=== PATIENT | male | born 1965 | race Caucasian/White ===

== ENCOUNTER 2016-12-28 14:01 | Emergency (ER) | payer OTHER ==
[~2016-12-28] VITALS: Ht 182.9 cm; Wt 84.1 kg
[~2016-12-28 14:01] MED LIST: AMT50T PO; ASPI500T8 PO; EPIN0.3P2 IJ; ERGO500050 PO; INSU100I13 SUBQ; INSU100V28 SUBQ; LAMO100T PO; LORA-305 PO; METF500T4 PO; METH0.2T42 PO; METO50TA3 PO; NORT25CA PO; PHEN32.417 PO; PRAM0.122 PO; SILD20TA14 PO; TIZA4CAP PO; TIZA4TAB4 PO; TOPI100T32 PO
[2016-12-28] MEDS ORDERED: fentaNYL-PF 50 mCg/mL 2 mL Inj ONE (14:02)
[2016-12-28] MEDS ORDERED: Propofol 10,000 mCg/mL 20 mL Inj ONE (14:02)
[2016-12-28 14:09] VITALS: BP 156/91; PULSE 113; RESP 10; O2SAT 96
[2016-12-28 16:47] LABS: BASOPHILS % (AUTO) 0.2 % (0-3); EOSINOPHILS % (AUTO) 0.8 % (0-5); MONOCYTES % (AUTO) 4.4 % (4-12); Mean Corpuscular Hemoglobin 28.2 pg (27.0-35.0); Mean Corpuscular Volume 82.2 fL (81-100); NEUTROPHILS % (AUTO) 73.6 % (40-74); Platelet Count 234 bil/L (150-400)
[2016-12-28] MEDS ORDERED: Ondansetron 2 mg/mL 2 mL Inj ONE (17:00)
[2016-12-28] MEDS ORDERED: oxyCODONE ER 10 mg ER12 Tablet PO ONE (17:46)
[2016-12-28] MEDS ORDERED: LORazepam 2 mg Tablet ONE (17:47)
--- NOTE | 2016-12-28 21:33 | PCM.HPANE ---
Patient Data Date of Service: December 28, 2016 Surgeon Admitting Provider: Attending Provider: Primary Care Physician:Ori Marshall MD Other Provider: Reason for Visit Passed Out Ht/WT & BMI Height (Feet): 6 Height (Inches): 0 Weight (Kilograms): 84.09 Body Mass Index Allergies Coded Allergies: prochlorperazine (Verified Allergy, Severe, anaphylaxis, 05/09/16) venom-honey bee (Verified Allergy, Severe, anaohykaxis, 05/09/16) adhesive tape (Verified Allergy, Intermediate, rash, 05/09/16) atorvastatin (Verified Allergy, Intermediate, hives, 05/09/16) miconazole (Verified Allergy, Intermediate, hives, 05/09/16) naproxen (Verified Allergy, Intermediate, hives, 05/09/16) sumatriptan (Verified Allergy, Intermediate, hives, 05/09/16) gabapentin (Verified Allergy, Mild, hives, 05/09/16) mirtazapine (Verified Allergy, Mild, hives, 05/09/16) oxycodone (Verified Allergy, Unknown, Anaphylaxis, 12/28/16) acetaminophen (Verified Adverse Reaction, Intermediate, nausea, 05/09/16) ibuprofen (Verified Adverse Reaction, Intermediate, liver toxicity, ) pregabalin (Verified Adverse Reaction, Mild, swelling, 05/09/16) Past Anesthesia History Anesthesia History: Denies:: Anesthesia Reactions Diabetes History Hx Diabetes?: Yes (TAKE INSULIN AND METFORMIN ) MRSA MRSA: No Medications Hypertension Medication: Yes Home Meds Incl Beta Agnieszka: Yes Date Beta Agnieszka Taken: December 28, 2016 Time Beta Agnieszka Taken: 08:00 Active Scripts Pramipexole Dihydrochloride (Mirapex)0.125 Mg Tablet0.125 Mg PO TID #21 TABLET Prov:Carlos Uribe DO 05/09/16 Metoprolol Tartrate 50 Mg Nfedlz71 Mg PO BID #60 TABLET Ref 0 Prov:Carlos Uribe DO 05/09/16 Metformin 500 Mg Emoizx351 Mg PO BID #60 TABLET Ref 0 Prov:Carlos Uribe DO 05/09/16 Insulin Glargine (Lantus U100 Solostar Insulin Pen)100 Unit/1 Ml Insuln.pen40 Unit SUBQ DAILY #1 PENINJ Ref 0 Prov:Carlos Uribe DO 05/09/16 Phenobarbital 32.4 Mg Vhyfgi75.4 Mg PO BID #60 TABLET Prov:Carlos Uribe DO 05/09/16 Lamotrigine (Lamictal)100 Mg Hozjxs252 Mg PO DAILY #30 TABLET Ref 0 Prov:Carlos Uribe DO 05/09/16 Reported Medications Tizanidine (Zanaflex)4 Mg Capsule8 Mg PO TID 05/09/16 Ergocalciferol (Vitamin D2) (Drisdol)50,000 Unit Fbzefyb31,000 Unit PO Q7D 05/09/16 Topiramate (Topamax)100 Mg Aykgau033 Mg PO BID Ref 0 05/09/16 Tizanidine 4 Mg Tablet8 Mg PO TID 05/09/16 Sildenafil Citrate (Sildenafil)20 Mg Ojvlfa20-257 Mg PO q 1-2hrs prior IC 05/09/16 Phenobarbital 32.4 Mg Dyjset30.4 Mg PO BID 30 Days 05/09/16 Nortriptyline 25 Mg Zlzcdbe208 Mg PO HS 05/09/16 Pramipexole Dihydrochloride (Mirapex)0.125 Mg Tablet0.125 Mg PO every 3rd day 05/09/16 Metoprolol Tartrate 50 Mg Stbdfo97 Mg PO TIDWM 30 Days Ref 0 05/09/16 Methylergonovine Maleate 0.2 Mg Tablet0.2 Mg PO BID 05/09/16 Metformin 500 Mg Zruzhg834 Mg PO BID Ref 0 05/09/16 Lamotrigine (Lamictal)100 Mg Tzozcf276 Mg PO DAILY #30 TABLET Ref 0 05/09/16 Insulin Regular, Human (HUMulin-R U100 Insulin Vial)100 Unit/1 Ml Vial12 Unit SUBQ BID #1 VIAL Ref 0 05/09/16 Epinephrine (Epipen 2-Adithya)0.3 Mg/0.3 Ml Auto.injct0.3 Mg IJ 05/09/16 Lorazepam (Ativan)2 Mg Tablet2 Mg PO TID SEIZURES Ref 0 05/09/16 Aspirin EC 500 Mg Tablet.dr500 Mg PO DAILY #1 BOTTLE Ref 0 05/09/16 Amitriptyline 50 Mg Tab50 Mg PO HS Ref 0 05/09/16 History History of ENT Problems?: No HEENT History: Denies:: Abnormal Airway Denture Type: None Teeth Condition: Within Normal Limits Hx of Heart Problems?: No Cardiovascular History: Positive for:: Hypertension Denies:: Congestive Heart Failure Hx of Respiratory Problem?: No Respiratory History: Denies:: Tuberculosis Hx Neurologic Problems?: Yes (chronic pain) Hx of GI Problems?: No Hx of Problems?: No HX of Peritoneal Dialysis: No Hx Musculoskeletal Problems?: Yes Musculoskeletal History: Positive for:: Back Injury Hx of Psycho/Social Problems?: Yes Psycho Social History: Positive for:: Anxiety Hx Surgeries?: Yes (GALLBLADDER, BRACHIAL CLEFT CYST, THROAT POLYPS, TONSILLECTOMY , LAMINECTOM) Hx Diabetes: Yes (TAKE INSULIN AND METFORMIN ) Hx Alcohol Use: NoHx Substance Use: No Smoking Status: Smoker Current Status UNK Have You Smoked inLast 12 mo: No Stop/Bang Risk Assessment Category Category 1A: Patient has history of documented sleep apnea, and HAS NOT received any narcotic, sedative or anesthesia administration during this stay. Category 1B: Patient has history of documented sleep apnea, and HAS received any narcotic , sedative or anesthesia administration during this stay Category 2: Patient has SUSPECTED Obstructive Sleep Apnea, and HAS received any narcotic , sedative or anesthesia administration during this stay. Category 3: Patient has SUSPECTED Obstructive Sleep Apnea and HAS NOT received narcotic, sedative or anesthesia administration during this stay. Category 4: Outpatient in Procedural Areas with known sleep apnea or who screen positive for High Risk via the STOP/BANG questionnaire. Exam Exam Vital Signs Vital Signs Date Time Temp Pulse Resp B/P Pulse Ox O2 Delivery O2 Flow Rate FiO2 12/28/16 14:09 36.7 113 10 156/91 96 Room Air General Appearance: Alert, Oriented X3 HEENT/AIRWAY: MP 2 Lungs: Clear to Auscultation Heart: Exam Unremarkable, Regular Rate/Rhythm Meds/Labs/Diagnostics Admission Meds Current Medications Ondansetron HCl (Zofran ODT) 4 mg ONCE ONCE PO Last administered on 12/28/16 16:00; Start 12/28/16 at 16:00; Stop 12/28/16 at 16:43; Status DC Metoprolol Tartrate (Lopressor) 50 mg STK-MED ONCE .ROUTE Last administered on 12/28/16 17:50; Start 12/28/16 at 17:44; Stop 12/28/16 at 19:01; Status DC Oxycodone HCl (OxyCONTIN ER) 10 mg STK-MED ONCE PO Last administered on 17:50; Start 12/28/16 at 17:46; Stop 12/28/16 at 19:01; Status DC Lorazepam (Ativan) 2 mg STK-MED ONCE .ROUTE Last administered on 12/28/16 17: 50; Start 12/28/16 at 17:47; Stop 12/28/16 at 19:01; Status DC Labs Test 12/28/16 15:19 White Blood Count 5.9th/mm3 (3.8-10.1) Red Blood Count 4.93mil/mm3 (4.40-5.80) Hemoglobin 13.9g/dL (13.8-17.2) Hematocrit 40.5% (41.0-50.0) Mean Corpuscular Volume 82.2fL (81-100) Mean Corpuscular Hemoglobin 28.2pg (27.0-35.0) Mean Corpuscular Hemoglobin Concent 34.3% (32.0-37.0) Red Cell Distribution Width 13.2% (12.3-15.4) Platelet Count 234bil/L (150-400) Neutrophils (%) (Auto) 73.6% (40-74) Lymphocytes (%) (Auto) 20.7% (14-46) Monocytes (%) (Auto) 4.4% (4-12) Eosinophils (%) (Auto) 0.8% (0-5) Basophils (%) (Auto) 0.2% (0-3) Hold Purple Top Tube Received (Received) Hold Blue Top Tube Received (Received) Sodium Level 135mEq/L (134-144) Potassium Level 4.3mEq/L (3.5-5.2) Chloride Level 98mEq/L (97-108) Carbon Dioxide Level 22mmol/L (18-29) Blood Urea Nitrogen 8mg/dL (6-24) Creatinine 0.80mg/dL (0.76-1.27) Estimat Glomerular Filtration Rate 107mL/min (>59) Glucose Level 238mg/dL (60-99) Calcium Level 9.3mg/dL (8.5-10.1) Total Bilirubin 0.4mg/dL (0.0-1.2) Aspartate Amino Transf (AST/SGOT) 17U/L (0-50) Alanine Aminotransferase (ALT/SGPT) 15U/L (0-44) Alkaline Phosphatase 137U/L (25-150) Total Protein 7.9g/dL (6.4-8.4) Albumin 4.1g/dL (3.4-5.0) Lipase 13U/L (13-60) Hold [place] Top Tube Received (Received) Plan Impression Patient chart reviewed, patient interviewed and anesthestic plan with risks, benefits, and alternatives discussed, and informed consent obtained. ASA Physical Status: ASA2 Mod Systemic Disease Anesthetic Plan: MAC Bene/Risks/Altern/Consents: Yes HP Complete Prior to Induction: Yes Raz Odom MD December 28, 2016 21:33
--- NOTE | 2016-12-28 23:34 | PCM.EDPN ---
ED Note Date of Service December 28, 2016 Exam General/Constitutional: Well-developed, Well-nourished ENT: Mucous membranes moist Neck: Supple Cardiovascular: Regular rate & rhythm Abdomen / GI: Non-tender Extremities: Vascular intact, No swelling, No tenderness Neurologic: Alert, Oriented Labs & Diagnostics Labs & Diagnostics Dr. Marinelli asked me to follow up with this gentleman's MRI. It required anesthesia for sedation for the MRI to be performed. The MRI showed no evidence of an epidural hematoma or cord compression or cord edema. He does have chronic changes related to discogenic and facet disease. No neurosurgical emergent findings were identified. I consulted with the on-call surgeon for Dr. Del Real at [facility]. I discussed the MR results. He concurs that there is no indication for neurosurgical evaluation at this time. I explained this to Mr. Garnett. He has pain medication which she can take. He will be discharged home and have him follow up closely with his neurosurgeon uses medications as prescribed. He will be observed until all effects of the sedation of worn off. When he 3:32 Mr. Garnett is awake and alert. His GCS is 15. His vitals are stable. Discharge Instructions Dates of Hospitalization Date of Hospital Admission Providers Admitting Physician: Primary Care Physician: Ori Marshall MD Attending Physician: Diagnosis at Time of Discharge Diagnosis at time of discharge low back pain Activity Discharge Activity: Limited until seen by PCP Patient Signature Patient Signature: RN Signature: Date/Time Jorge Luis Dupont DO December 28, 2016 23:34
[2016-12-28 23:56] VITALS: BP 123/71; PULSE 64; RESP 16; O2SAT 95
--- NOTE | 2016-12-29 09:08 | DRSVH ---
PROCEDURE: MRI LUMBAR SPINE WITHOUT CONTRAST ([id number]) INDICATIONS: Bilateral leg weakness, recent L4-L5 fracture, acute neuro deficit TECHNIQUE: Noncontrast sagittal T1 spin echo and T2 fast echo, sagittal STIR, axial T1 and T2 fast spin echo thr ough the lumbar spine. In cases with scoliosis, additional coronal T2 fast spin echo may be performe d. COMPARISON: [facility], CT, CT LUMBAR SPINE WO CON, 07/27/2016, 13:34. FINDINGS: Image quality: Excellent. Alignment and Curvature: There is grade 1 anterolisthesis of L4 over L5 secondary to pars inter-tata cularis defects. Bone Marrow: Degenerative endplate signal changes scattered the lumbar spine. Limbus vertebral of L4 . No acute vertebral body compression fractures. Spinal Cord: Conus medullaris terminates at the L1-L2 level. Visualized cord demonstrates normal si gnal and size. Paraspinous Soft Tissues: No paravertebral masses. L1-L2: Mild loss of disc height and disc desiccation. There is broad posterior disc bulge. The cent ral canal is patent. Mild bilateral foraminal stenosis. L2-L3: Mild loss of disc height and disc desiccation. There is broad posterior disc bulge and disc osteophyte complex.. Mild bilateral facet arthropathy and hypertrophy of ligamentum flavum. The cent ral canal is mxbg-zd-okxnbctslq narrowed. Mild bilateral foraminal stenosis. L3-L4: Moderate loss of disc height and disc desiccation. There is broad posterior disc bulge and hy pertrophy of ligamentum flavum. No significant central canal and foraminal stenosis. L4-L5: Severe loss of disc height and disc desiccation. There is broad posterior disc bulge and disc osteophyte complex.. Mild bilateral facet arthropathy and hypertrophy of ligamentum flavum. The sukh tral canal is mildly narrowed. Severe left and moderate right foraminal stenosis. L5-S1: Moderate disc desiccation with preserved disc height. Mild bilateral facet arthropathy. The c entral canal is patent. No significant foraminal stenosis. IMPRESSION: 1. Multilevel degenerative disc disease and facet arthropathy as described. 2. Mild/moderate central canal stenosis at L2-L3 and L4-L5. 3. Severe left and moderate right foraminal stenosis at L4-L5. Mild foraminal stenoses at several oth er levels as described. 4. Grade 1 anterolisthesis of L4 over L5 secondary to pars defects. No significant discrepancy with the night custodian radiology preliminary report. Dictated by: Sanju Ramirez M.D. on 12/29/2016 at 8:53 Approved by: Sanju Ramirez M.D. on 12/29/2016 at 9:07
== END 2016-12-28 23:53 | disposition home or self-care (01) ==
LOC: SED 14:01
DX: M54.5 Low back pain (principal); M54.16 Radiculopathy, lumbar region; R10.12 Left upper quadrant pain; I10 Essential (primary) hypertension; E11.40 Type 2 diabetes mellitus with diabetic neuropathy, unspecified; E78.5 Hyperlipidemia, unspecified; F41.9 Anxiety disorder, unspecified; F43.10 Post-traumatic stress disorder, unspecified; G40.909 Epilepsy, unspecified, not intractable, without status epilepticus; Z88.8 Allergy status to other drugs, medicaments and biological substances; Z88.5 Allergy status to narcotic agent; Z88.6 Allergy status to analgesic agent; Z88.3 Allergy status to other anti-infective agents
CPT/HCPCS: 36415; 72148; 80053; 83690; 85025; 93005; 96374; 99285; J2060; J2250; J3010